=== PATIENT | male | born 1990 | race Caucasian/White ===

== ENCOUNTER 2016-10-03 09:08 | Emergency (ER) | payer BC ==
[~2016-10-03] VITALS: Ht 182.9 cm; Wt 92.5 kg
[2016-10-03 10:45] VITALS: BP 138/85
== END 2016-10-03 10:45 | disposition home or self-care (01) ==
LOC: ED 09:08
DX: S61.411A Laceration without foreign body of right hand, initial encounter (principal); X58.XXXA Exposure to other specified factors, initial encounter; Y93.89 Activity, other specified; Y99.8 Other external cause status; Y92.89 Other specified places as the place of occurrence of the external cause
CPT/HCPCS: J2001